=== PATIENT | male | born 1990 | race Two or more races ===

== ENCOUNTER 2023-11-24 20:03 | Emergency (ER) | payer SELFPAY ==
[2023-11-24 20:37] VITALS: BP 139/87; O2SAT 99
--- NOTE | 2023-11-24 21:12 | XRAY Report ---
PROCEDURE: Hand 3+V RT INDICATIONS: punched a door TECHNIQUE: 3 views of the hand(s) acquired. COMPARISON: None. FINDINGS: Bones: There is a mildly displaced fracture involving the distal right fifth metacarpal with volar a ngulation of distal fracture fragment. No definite intra-articular extension. Overlying soft tissue s welling. Other osseous structures are unremarkable. No suspicious osseous lesions. Soft tissues: No suspicious soft tissue calcifications or masses. IMPRESSION: Mildly displaced distal right fifth metacarpal fracture. Reviewed by: Saul Lau MD on 11/24/2023 9:10 PM PDT Approved by: Saul Lau MD on 11/24/2023 9:10 PM PDT Station ID: [id number]
--- NOTE | 2023-11-24 21:13 | XRAY Report ---
PROCEDURE: Wrist 3+V RT INDICATIONS: injury TECHNIQUE: 3 views of the wrist were acquired. COMPARISON: Hand radiographs from same day. FINDINGS: Bones: There is a mildly displaced fracture of the distal fifth metacarpal. Other visualized structu res appear intact. No fractures of the wrist bones identified. Normal alignment. Joint spaces are victorina ntained. Soft tissues: No suspicious soft tissue calcifications or masses. IMPRESSION: Distal fifth metacarpal fracture better seen on dedicated and period. Please see separate report for details. No acute fractures identified within the wrist. If there is persistent clinical concern for a radiogr aphically occult fracture, recommend immobilization and repeat imaging in 10 to 14 days. Reviewed by: Saul Lau MD on 11/24/2023 9:12 PM PDT Approved by: Saul Lau MD on 11/24/2023 9:12 PM PDT Station ID: [id number]
--- NOTE | 2023-11-24 22:16 | ED Physician Documentation ---
PD HPI UPPER EXT INJURY - Stated complaint Stated Complaint: RT HAND PX - Chief complaint Chief Complaint: Trauma Ext - History obtained from History obtained from: Patient - History of Present Illness Location: Right, Hand Pain level max: 7 Pain level now: 7 Improved by: Rest, Ice, Immobilization Worsened by: Moving, Palpating - Additonal information Additional information: 33-year-old male presents to the emergency department after punching a freezer today with his right hand. Complains of right fifth metacarpal pain. Worse with movement, better with rest. PD PAST MEDICAL HISTORY - Past Medical History Past Medical History: No - Past Surgical History Past Surgical History: No - Present Medications Home Medications: Ambulatory Orders Medication Instructions Recorded Confirmed oxyCODONE [Roxicodone] 5 - 10 mg PO Q6H PRN #14 tablet 11/24/23 MDD 6 - Allergies Allergies/Adverse Reactions: Allergies Allergy/AdvReac Type Severity Reaction Status Date / Time azithromycin [From Zithromax] Allergy Edema Verified 11/24/23 20:15 - Social History Does the pt smoke?: No Smoking Status: Never smoker Does the pt drink ETOH?: No Does the pt have substance abuse?: No - Immunizations Immunizations are current?: Yes - POLST Patient has POLST: No PD ED PE NORMAL - Vitals Vital signs reviewed: Yes - General General: Alert and oriented X 3 - HEENT HEENT: Moist mucous membranes - Derm Derm: Warm and dry - Extremities Extremities: Other (R hand - TTP over the R 5th MC. NVI mild swelling at the site. o/w normal exam of hand and wrist. ) - Neuro Neuro: Alert and oriented X 3 Results - Vitals Vitals: Oxygen O2 Source Room air - Rads (name of study) R hand xray Relevant Findings:: Final report received, See rad report Procedures - Splint (location) - Minor R hand Splint applied by: Physician Type of splint: Prefab velcro wrist (velcro boxers fracture splint) Other: Patient tolerated well, No complications, Neurovascular intact PD Medical Decision Making - ED course Complexity details: reviewed results, re-evaluated patient, considered differential, d/w patient ED course: 33-year-old male with a right fifth metacarpal fracture. Placed in a Velcro boxer splint. Neurovascularly intact. Will have him follow-up with orthopedics for further care. He will return if he worsens. Neurovascular intact. No need for reduction in the emergency department. Patient counseled regarding signs and symptoms for which I believe and urgent re-evaluation would be necessary. Patient with good understanding of and agreement to plan and is comfortable going home at this time This document was made in part using voice recognition software. While efforts are made to proofread this document, sound alike and grammatical errors may occur. Departure - Departure Disposition: 01 Home, Self Care Clinical Impression: Fracture of fifth metacarpal bone Qualifiers: Encounter type: initial encounter Fracture type: closed Metacarpal location: unspecified portion of metacarpal Fracture alignment: displaced Laterality: right Qualified Code(s): S62.306A - Unspecified fracture of fifth metacarpal bone, right hand, initial encounter for closed fracture Condition: Good Instructions: ED Fx Boxer Follow-Up: [facility]opedic [facility] [Provider Group] [facility] [Provider Group] Prescriptions: oxyCODONE [Roxicodone] 5 - 10 mg PO Q6H PRN #14 tablet MDD 6 PRN Reason: pain Comments: Please follow-up with orthopedics for further care of your right fifth metacarpal fracture. Stay in the splint until seen by orthopedics. Your prescription was sent to [facility] in [place]. Please return if you worsen. I am prescribing a short course of narcotic pain medication for you. These are potentially dangerous and addictive medications that should be used carefully. These medications may constipate you. Take an pezx-hyk-cgjjcfm stool softener (docusate) twice daily with plenty of water while taking these medications. If you go 24 hours without a bowel movement, take mrsq-cqj-ymtkxod miralax, per package instructions. Do not drink or drive while taking these medications. If you received narcotic or sedating medications while in the emergency department, do not drive for 24 hours. Store this medication in a safe, secure place and out of reach of children. It is a violation of federal law to give or sell this medication to another person or to use in a manner other than prescribed. The ED will not refill narcotic prescriptions, including prescriptions lost or stolen. To dispose of unwanted medications: 1. [facility] at [address] in [facility] has a medication drop box. They accept prescription medications (in pill form) Monday through Monday 9:00 a.m. to 5:00 p.m. 2. [facility] [employer] accepts prescription medications (in pill form only) for disposal year round. Call for more information. 3. Contact the [facility] for the next [facility] sponsored prescription drug collection event. , [phone], or [phone]; Forms: PCP List Discharge Date/Time: 11/24/23 22:30
[2023-11-24] MEDS: oxyCODONE 5 MG TABLET PO STA (22:22)
== END 2023-11-24 22:30 | disposition home or self-care (01) ==
LOC: ED 20:03
DX: S62.396A Other fracture of fifth metacarpal bone, right hand, initial encounter for closed fracture (principal); W22.09XA Striking against other stationary object, initial encounter
CPT/HCPCS: 73110; 73130; 99283; 99284; A9270